=== PATIENT | male | born 1965 | race Caucasian/White ===

== ENCOUNTER 2023-07-23 22:46 | Emergency (ER) | payer BC, SELFPAY ==
[2023-07-23 22:51] VITALS: BP 128/70
--- NOTE | 2023-07-23 23:50 | ED.GENMED ---
History of Present Illness
<TRACEE Wan - Last Filed: 07/24/23 01:26>
General
Chief Complaint: Abdominal Pain
Source: patient
Exam Limitations: none
Time Seen by Provider: 07/23/23 23:33
Nursing documentation reviewed up to this point in time: agreed with
Travel History
Have you had any contact with someone who has COVID-19?: No
Do you have any symptoms of coronavirus? Fever > 100 degrees, chills, cough, shortness of breath, sore throat, loss of taste or smell, muscle aches, or headache?: No
History of Present Illness
History of Present Illness:
Pt is a 58 yo male with PMH of current tobacco use and cholecystectomy in 2016 who presents today with left sided upper abdominal pain. Pt states that he woke up with the pain about a week ago. Describes it as crampy and a constant 4/10 with
exacerbations up to 10/10 with random movements, occasionally with walking. States that he has been taking 'three pills of OTC ibuprofen 500mg' which does not improve the pain much, last dose at 2pm. Denies N/V, constipation, diarrhea, blood in
stool, urinary sx, SOB, chest pain, arm pain. Denies change in appetite or change in pain with eating. Denies taking daily meds or having any chronic medical conditions. Denies prior abdominal surgeries except for laparoscopic cholecystectomy in
2016. Pt states that he had an infected tooth pulled on sunday and was started on an antibiotic.
Past History
<TRACEE Wan - Last Filed: 07/24/23 01:26>
Past History
ED Past Medical History: None
ED Past Surgical History: None
Social History
Tobacco: Smoker
Alcohol: None
Drug: None
Personal: Single
Living: with family
Review of Systems
<TRACEE Wan - Last Filed: 07/24/23 01:26>
Review of Systems
Allergies reviewed?: Yes
All Other Systems: ROS reviewed and negative except as documented in HPI and ROS
Phy Exam
<TRACEE Wan - Last Filed: 07/24/23 01:26>
General Physical Exam
General Presentation: no apparent distress
General Skin: warm and dry
General Mental: alert
ENT Exam
ENT Exam: neck supple, normocephalic and swallowing well
Eye Exam
Eye Exam: PERRL and conjunctiva normal
Cardiovascular Exam
Cardiovascular Exam: regular rate/rhythm, no edema, no gallop, no murmur and normal peripheral pulses
Pulmonary Exam
Pulmonary Exam: lungs clear, no respiratory distress, no rales, no crackles, no rhonchi, no wheezing and no cough
Gastrointestinal Exam
Gastrointestinal Exam: normal bowel sounds, soft, non distended, guarding and tender (tenderness of lateral left upper abdomen and lower intercostals)
Neurological Exam
Neurological Exam: alert, oriented x3 and speech normal
Musculoskeletal Exam
Musculoskeletal Exam: other (left lateral upper abdominal pain with movement of trunk)
Skin Exam
Skin Exam: normal color and warm/dry
Psychiatric Exam
Psychiatric Exam: normal mood/affect
Course
<TRACEE Wan - Last Filed: 07/24/23 01:26>
Orders/Labs/Results
Orders:
Orders
07/23/23 23:55
CBC/With Diff [Complete Blood Count/With Diff] Urgent
CMP [Comprehensive Metabolic Panel] Urgent
Lipase Urgent
Urinalysis Reflex To Culture Urgent
Date Specimen was Collected: 07/24/23
Time Specimen was Collected: 02:29
07/24/23 00:03
Ketorolac [Toradol] 30 mg IV NOW STA
07/24/23 00:47
CT Abd/pelvis W Iv Cont Urgent
Comment:
Reason For Exam: L flank to LUQ pain x 1 week-progressing
Abnormal Lab Results
07/24/23
00:06
RBC 4.05 L 10^6/uL
(4.70-6.10)
Hct 38.0 L %
(39.0-52.0)
MCH 32.1 H pg
(27.0-31.0)
Abs Immat Gran (auto) 0.1 H 10^3/uL
(0-0.05)
Absolute Lymphs (auto) 3.7 H 10^3/uL
(1.2-3.4)
Absolute Monos (auto) 0.8 H 10^3/uL
(0.1-0.6)
Immature Gran % 0.6 H %
(0-0.5)
Neutrophils % 42.0 L %
(42.2-75.2)
Monocytes % 9.5 H %
(1.7-9.3)
Carbon Dioxide 31 H mmol/L
(22-30)
Glucose 101 H mg/dl
(70-99)
07/24/23 00:06
07/24/23 00:06
Vital Signs
Initial and Last Documented VS:
Initial Vital Signs
Temp Pulse Resp BP Pulse Ox
98.4 F 70 20 128/70 98
07/23/23 22:51 07/23/23 22:51 07/23/23 22:51 07/23/23 22:51 07/23/23 22:51
Last Documented Vital Signs
Temp Pulse Resp BP Pulse Ox
98.4 F 70 20 128/70 98
07/23/23 22:51 07/23/23 22:51 07/23/23 22:51 07/23/23 22:51 07/23/23 22:51
<Anabel Farias, - Last Filed: 07/24/23 03:27>
Orders/Labs/Results
Orders:
Orders
07/23/23 23:55
CBC/With Diff [Complete Blood Count/With Diff] Urgent
CMP [Comprehensive Metabolic Panel] Urgent
Lipase Urgent
Urinalysis Reflex To Culture Urgent
Date Specimen was Collected: 07/24/23
Time Specimen was Collected: 02:29
07/24/23 00:03
Ketorolac [Toradol] 30 mg IV NOW STA
07/24/23 00:47
CT Abd/pelvis W Iv Cont Urgent
Comment:
Reason For Exam: L flank to LUQ pain x 1 week-progressing
Abnormal Lab Results
07/24/23
00:06
RBC 4.05 L 10^6/uL
(4.70-6.10)
Hct 38.0 L %
(39.0-52.0)
MCH 32.1 H pg
(27.0-31.0)
Abs Immat Gran (auto) 0.1 H 10^3/uL
(0-0.05)
Absolute Lymphs (auto) 3.7 H 10^3/uL
(1.2-3.4)
Absolute Monos (auto) 0.8 H 10^3/uL
(0.1-0.6)
Immature Gran % 0.6 H %
(0-0.5)
Neutrophils % 42.0 L %
(42.2-75.2)
Monocytes % 9.5 H %
(1.7-9.3)
Carbon Dioxide 31 H mmol/L
(22-30)
Glucose 101 H mg/dl
(70-99)
07/24/23 00:06
07/24/23 00:06
Vital Signs
Initial and Last Documented VS:
Initial Vital Signs
Temp Pulse Resp BP Pulse Ox
98.4 F 70 20 128/70 98
07/23/23 22:51 07/23/23 22:51 07/23/23 22:51 07/23/23 22:51 07/23/23 22:51
Last Documented Vital Signs
Temp Pulse Resp BP Pulse Ox
98.4 F 70 20 128/70 98
07/23/23 22:51 07/23/23 22:51 07/23/23 22:51 07/23/23 22:51 07/23/23 22:51
<Anabel Farias DO - Last Filed: 07/24/23 03:27>
*Radiology
Radiology exam reviewed: radiology read reviewed (CT abdomen pelvis is unremarkable. Incidental findings of small left renal cyst, small presumed hepatic cyst. DJD of spine. Mild atelectasis at lung bases.)
*Pulse Oximetry
Patient hypoxic: no
*Critical Care Note
Total Time (30-74mins, 75-104mins- exclusive of procedures): Not Applicable
<TRACEE Wan - Last Filed: 07/24/23 01:26>
Update Note
Update Note:
07/24/2023 0126 AM: Pt resting in bed. States he is unsure if he feels better following toradol as he has not moved around much to test it.
ED Attending Note
<TRACEE Wan - Last Filed: 07/24/23 01:26>
-
Portions of this chart may have been created with voice recognition software.� Occasional wrong word or��sound alike� substitutions may have occurred due to the inherent limitations of voice recognition software.
<Anabel Farias DO - Last Filed: 07/24/23 03:27>
ED Attending Note
Patient seen and examined by attending physician: Yes
I performed the substantive portion of visit, reviewed & personally made and approve the management plan that is documented in note by myself or FLORENCE.: Yes
I performed a history and physical exam of patient and discussed management with resident, I reviewed resident's note and agree with documented findings and plan of care.: Yes
ED Attending Note:
This is a 58-year-old gentleman with no significant past medical history who complains of approximately 1 week history of left lateral flank pain. No insightful injury but patient works as an auto brake technician and admits to frequent lifting, bending,
etc.
He also notes pain is worse with rotation of his trunk, worse with sitting up, bending, improved when he is lying still. No other associated symptoms. He has not had a cough nor shortness of breath, no nausea or vomiting, no diarrhea or
constipation, no dysuria urgency or hematuria. Pain seem to have mildly improved over the weekend but then worsened again today when he returned to work. He has not had a rash. No fever nor chills.
No history of similar episodes of pain.
He has been taking acetaminophen 500 mg for pain without relief.
58-year-old gentleman appears somewhat older than stated age, bright and alert, pleasant, appears in no acute distress.
HEENT: Oral mucosa is moist. Anicteric.
Neck is supple, nontender, no adenopathy.
Heart is regular rate and rhythm.
Lungs are clear to auscultation, respirations are easy and unlabored.
Abdomen is soft, nondistended, mild to moderate tenderness left upper lateral quadrant, left lateral flank and moderate tenderness left lateral distal costal margin. There is very mild left CVA tenderness.
Back: No midline bony tenderness. There is mild fullness of the left thoracolumbar musculature but no palpable tenderness. Straight leg raising is negative bilaterally.
Skin is warm and dry, normal color. No rash.
Extremities without clubbing or cyanosis or edema. Peripheral pulses are full and equal. Nontender.
No focal neurodeficits. Gait is steady.
Concern for musculoskeletal left flank pain, other consideration is kidney stone, renal infarct/mass, pyelonephritis. Left lower lobe pneumonia, diverticulitis or less likely.
Will check labs, urinalysis and will trial an IV dose of Toradol.
Will consider CT abdomen pelvis with versus without IV contrast depending on lab results.
07/24/2023 0325 AM
Patient has been resting comfortably reports significant relief of pain after dose of Toradol.
Able to move about with greater ease.
Labs are unremarkable as is urinalysis.
CT abdomen pelvis is overall unremarkable.
I suspect musculoskeletal pain, left lateral inferior intercostal muscle strain, lateral flank muscle strain in nature.
A prescription for diclofenac has been provided for as needed pain.
Recommend supportive measures, avoiding heavy lifting, applying local heat to area.
Patient lacks PCP; he has been referred to our [facility] for follow-up.
Discharge Plan
Departure
Patient Disposition: Home (Routine Discharge)
Date of Disposition: 07/24/23
Time of Disposition: 03:20
Patient with high blood pressure during this ER visit?: No
Condition: Good
Discharge Problem:
left flank muscle strain
Instructions: Muscle Strain (DC)
Prescriptions:
New
diclofenac sodium 75 mg tablet,delayed release (DR/EC)
75 mg PO BID PRN (Reason: pain) Qty: 30 0RF
Referrals:
[facility] [Outside] - Call in 1-3 days for appt
NONE,* [Family Provider] -
Interventions
Interventions:
*Risk Screen - Suicide Last Done: 07/23/23 22:51
*General Assessment Last Done: 07/24/23 00:07
*Neglect/Abuse Screening Last Done: 07/23/23 22:51
MX-[id number]-Wdpmdsazvb Assessment Last Done: 07/24/23 00:22
ED-Musculoskeletal Assessment Last Done: 07/24/23 00:23
[2023-07-24 00:06] VITALS: BMI 28.0
[2023-07-24] MEDS: TORADOL 30 MG IV (00:08)
[2023-07-24 00:31] LABS: ALT (SGPT) 13 U/L (0-50); AST (SGOT) 22 U/L (17-59); Albumin 3.8 g/dl (3.5-5.0); Alkaline Phosphatase 47 U/L (38-126); Blood Urea Nitrogen 20 mg/dl (9-20); Calcium 8.6 mg/dl (8.4-10.2); Carbon Dioxide 31 mmol/L (22-30); Chloride 103 mmol/L (98-107); Estimated Creatinine Clearance 82 ml/min; Glucose 101 mg/dl (70-99); Lipase 67 U/L (23-300); Potassium 3.8 mmol/L (3.5-5.1); Sodium 135 mmol/L (135-145); Total Bilirubin 0.8 mg/dl (0.2-1.3); Total Protein 6.3 g/dl (6.3-8.2); eGFR > 60.00
[2023-07-24 00:39] LABS: % Basophils 0.9 % (0-2); % Eosinophils 1.3 % (0-6); % Immature Granulocytes 0.6 % (0-0.5); % Lymphocytes 45.7 % (20.5-51.1); % Monocytes 9.5 % (1.7-9.3); Absolute Basophils 0.1 10^3/uL (0-0.2); Absolute Eosinophils 0.1 10^3/uL (0-0.7); Absolute Immature Granulocytes 0.1 10^3/uL (0-0.05); Absolute Lymphocytes 3.7 10^3/uL (1.2-3.4); Absolute Monocytes 0.8 10^3/uL (0.1-0.6); Absolute Neutrophils 3.4 10^3/uL (1.4-6.5); Mean Corp Hgb Conc. 34.2 g/dL (33.0-37.0); Mean Corpuscular Hgb 32.1 pg (27.0-31.0); Mean Corpuscular Volume 93.8 fL (80.0-94.0); Nucleated Red Blood Cells % 0 % (-); Platelet Count 250 10^3/uL (130-400); Red Blood Cell Count 4.05 10^6/uL (4.70-6.10); Red Cell Dist. Width 12.2 % (11.5-14.5); White Blood Cell Count 8.2 10^3/uL (4.8-10.8)
[2023-07-24 03:00] VITALS: BP 131/66
[2023-07-24 03:00] LABS: Urine Albumin Trace (Neg - Trace); Urine Bilirubin Negative (Negative); Urine Character Clear (Clear); Urine Color Yellow; Urine Glucose Negative (Negative); Urine Ketone Negative (Negative); Urine Leukocyte Negative (Negative); Urine Nitrite Negative (Negative); Urine Occult Blood Negative (Negative); Urine Specific Gravity 1.015 (<1.030); Urine Urobilinogen Negative (Neg - 1+)
== END 2023-07-24 03:40 | disposition home or self-care (01) ==
LOC: EMR 22:46
PROVIDERS: EMERGENCY PHYSICIAN Emergency Medicine
DX: S39.011A Strain of muscle, fascia and tendon of abdomen, initial encounter (principal); X58.XXXA Exposure to other specified factors, initial encounter; N28.1 Cyst of kidney, acquired; F17.200 Nicotine dependence, unspecified, uncomplicated; Z90.49 Acquired absence of other specified parts of digestive tract
CPT/HCPCS: 99285; 96374; 74177; 80053; 81003; 83690; 85025; Q9967

== ENCOUNTER 2024-03-21 13:08 | Emergency (ER) | payer BC, SELFPAY ==
[2024-03-21 13:09] VITALS: BP 118/79
[2024-03-21 13:42] LABS: % Basophils 0.8 % (0-2); % Monocytes 7.2 % (1.7-9.3); Absolute Basophils 0.1 10^3/uL (0-0.2); Absolute Eosinophils 0.1 10^3/uL (0-0.7); Absolute Lymphocytes 2.8 10^3/uL (1.2-3.4); Absolute Monocytes 0.4 10^3/uL (0.1-0.6); Absolute Neutrophils 2.6 10^3/uL (1.4-6.5); Hematocrit 39.4 % (39.0-52.0); Hemoglobin 13.8 g/dL (13.0-18.0); Mean Corpuscular Volume 88.5 fL (80.0-94.0); Mean Platelet Volume 8.7 fL (7.4-10.4); Nucleated Red Blood Cells % 0 % (-); Platelet Count 264 10^3/uL (130-400); Red Blood Cell Count 4.45 10^6/uL (4.70-6.10); Red Cell Dist. Width 12.2 % (11.5-14.5); White Blood Cell Count 5.9 10^3/uL (4.8-10.8)
[2024-03-21 14:00] LABS: ALT (SGPT) 16 U/L (0-50); AST (SGOT) 24 U/L (17-59); Albumin 4.2 g/dl (3.5-5.0); Alkaline Phosphatase 50 U/L (38-126); Blood Urea Nitrogen 17 mg/dl (9-20); Carbon Dioxide 27 mmol/L (22-30); Chloride 105 mmol/L (98-107); Glucose 108 mg/dl (70-99); Lipase 49 U/L (23-300); Potassium 4.2 mmol/L (3.5-5.1); Sodium 139 mmol/L (135-145); Total Protein 6.6 g/dl (6.3-8.2); eGFR > 60.00
--- NOTE | 2024-03-21 14:06 | ED.GENMED ---
History of Present Illness
General
Chief Complaint: Abdominal Pain
Source: patient
Time Seen by Provider: 03/21/24 13:21
History of Present Illness
History of Present Illness:
59-year-old male presents with variety of complaints. Most notably today he was trying in a bed had severe pain in his upper back. He states he could barely move. Pain seem to go down his upper right upper back toward the lower back. Then
noticed a little bit discomfort in his right lower abdomen. Admits he has had some abdominal pain off and on over some months.
Past History
Past History
ED Past Medical History: None
ED Past Surgical History: None
Social History
Tobacco: Smoker
Alcohol: None
Drug: None
Personal: Single
Living: with family
Phy Exam
Physical Exam
Physical Exam:
CONSTITUTIONAL Patient alert and oriented to person, place and time. Well-appearing. Vital signs reviewed.
HEAD atraumatic, normocephalic.
EYES eyelids normal to inspection, Pupils equally round and reactive to light, Extraocular muscles intact, Conjunctiva normal, Sclera normal.
NECK normal range of motion, Trachea midline, no jugular venous distention.
RESPIRATORY CHEST No respiratory distress noted, Chest expansion equal, Bilateral breath sounds clear.
CARDIOVASCULAR regular rate and rhythm, Heart sounds normal.
ABDOMEN abdomen nontender, Bowel sounds normal. No distention. Reducible hernia noted to the right groin
BACK normal inspection, no obvious deformities
UPPER EXTREMITY range of motion normal, Motor strength normal, no cyanosis, no edema.
LOWER EXTREMITY range of motion normal, Motor strength normal, no cyanosis, no edema.
NEURO Speech normal, No focal motor deficits, [place] coma scale 15, Memory normal, Cranial Nerves intact to screening exam.
SKIN skin warm, dry, and normal in color.
PSYCHIATRIC patient oriented to person place and time, Normal affect.
Sepsis
Sepsis Screening
Sepsis Assessment: Sepsis Ruled Out
Sepsis Screen
Sepsis Screen: Sepsis Ruled Out
Date: 03/21/24
Time: 19:58
Course
Orders/Labs/Results
Orders:
Orders
03/21/24 13:32
Complete Blood Count/With Diff Urgent
Comprehensive Metabolic Panel Urgent
Lipase Urgent
Urinalysis Reflex To Culture Urgent
Date Specimen was Collected: 03/21/24
Time Specimen was Collected: 13:13
03/21/24 13:47
Electrocardiogram (*1) Urgent
Reason for Study: Chest Pain
EKG- Treatment ONCE
03/21/24 13:54
CT Chest/abd/pelvis Angio W/wo Urgent
Comment:
Reason For Exam: back pain, chest pain
03/21/24 14:35
Troponin I Urgent
Abnormal Lab Results
03/21/24
13:32
RBC 4.45 L 10^6/uL
(4.70-6.10)
Glucose 108 H mg/dl
(70-99)
03/21/24 13:32
03/21/24 13:32
Vital Signs
Initial and Last Documented VS:
Initial Vital Signs
Temp Pulse Resp BP Pulse Ox
99.8 F 72 18 118/79 98
03/21/24 13:09 03/21/24 13:09 03/21/24 13:09 03/21/24 13:09 03/21/24 13:09
Last Documented Vital Signs
Temp Pulse Resp BP Pulse Ox
99.8 F 72 18 108/72 98
03/21/24 13:09 03/21/24 13:09 03/21/24 13:09 03/21/24 15:00 03/21/24 15:00
MDM/Problems Addressed
MDM/Problems Addressed:
Back pain, inguinal hernia
*Radiology
Radiology exam reviewed: radiology read reviewed
*Pulse Oximetry
Patient hypoxic: no
*EKG
Interpreted by ED Provider?: Yes
Interpretation: abnormal
Rate: bradycardiac
Rhythm: sinus
Lehr: normal axis
Interval: normal interval
Ischemia: no ischemia
*Senior Interactive Producer Interpretation
Rate: bradycardiac
Interpretation: normal
Rhythm: sinus
*Critical Care Note
Total Time (30-74mins, 75-104mins- exclusive of procedures): Not Applicable
Data Reviewed
Source: patient
Further Testing Considered But Not Given:
Consider repeat troponin but symptoms started this morning and single troponin rules out ACS
Patient Management
Escalation/DeEscalation of care consider admission/obs:
Appears well. Stable. Does have an inguinal hernia that is easily reducible. Okay for discharge outpatient follow-up. No dissection. Troponin negative. EKG unremarkable
ED Attending Note
-
Portions of this chart may have been created with voice recognition software.� Occasional wrong word or��sound alike� substitutions may have occurred due to the inherent limitations of voice recognition software.
Discharge Plan
Departure
Patient Disposition: Home (Routine Discharge)
Date of Disposition: 03/21/24
Time of Disposition: 19:40
Patient with high blood pressure during this ER visit?: No
Discharge Problem:
Back pain, Inguinal hernia
Instructions: Groin Hernia (DC)
Prescriptions:
No Action
diclofenac sodium 75 mg tablet,delayed release (DR/EC)
75 mg PO BID PRN (Reason: pain) Qty: 30 0RF
Referrals:
UNKNOWN - PT DOES,NOT KNOW [Family Provider] -
Activity Restrictions/Additional Instructions:
Back pain
Return immediately for fevers, vomiting, chest pain, shortness of breath, palpitations or any other concerns. Please stop smoking as discussed. Please see your doctor next 3 to 5 days for follow-up and reevaluation.
Interventions
Interventions:
*Risk Screen - Suicide Last Done: 03/21/24 13:09
*General Assessment Last Done: 03/21/24 13:09
*Neglect/Abuse Screening Last Done: 03/21/24 13:09
WF-Xfvhig-Nhnlojdtso Assessment Last Done: 03/21/24 15:26
Discharge Date and Time
Print Language: LIBYAN
[2024-03-21 14:51] VITALS: BP 107/71
[2024-03-21 15:00] VITALS: BP 108/72
[2024-03-21 15:00] LABS: Urine Albumin Negative (Neg - Trace); Urine Bilirubin Negative (Negative); Urine Character Clear (Clear); Urine Color Yellow; Urine Glucose Negative (Negative); Urine Ketone Negative (Negative); Urine Leukocyte Negative (Negative); Urine Nitrite Negative (Negative); Urine Occult Blood Negative (Negative); Urine Specific Gravity 1.025 (<1.030); Urine Urobilinogen Negative (Neg - 1+)
[2024-03-21 15:16] LABS: Troponin I < 0.012 ng/ml
[2024-03-21 20:36] VITALS: BP 126/77
== END 2024-03-21 20:48 | disposition home or self-care (01) ==
LOC: EMR 13:08
PROVIDERS: Emergency Medicine; EMERGENCY PHYSICIAN Emergency Medicine
DX: K40.90 Unilateral inguinal hernia, without obstruction or gangrene, not specified as recurrent (principal); M54.50 Low back pain, unspecified; M54.6 Pain in thoracic spine; R10.9 Unspecified abdominal pain; F17.200 Nicotine dependence, unspecified, uncomplicated
CPT/HCPCS: 99285; 71275; 74174; 80053; 81003; 83690; 84484; 85025; 93005; Q9967